=== PATIENT | female | born 1975 | race Caucasian/White ===

== ENCOUNTER 2020-04-28 00:41 | Outpatient (CLI) | payer OTHER, SELFPAY ==
[2020-04-28 18:35] LABS: SARS-CoV-2 RNA PCR Negative
== END 2020-04-28 00:42 | disposition home or self-care (01) ==
LOC: ANHCOVIDDT 00:41
PROVIDERS: PCP Family Medicine; Visit Provider Surgery
DX: Z01.812 Encounter for preprocedural laboratory examination (principal); Z11.59 Encounter for screening for other viral diseases
CPT/HCPCS: 87635; C9803; U0003

== ENCOUNTER 2020-04-30 01:37 | Day surgery (SDC) | payer OTHER, SELFPAY ==
[2020-04-14 12:26] VITALS: BMI 23.4
[2020-04-30] VITALS (11 sets, daily range): BP systolic 98–145; BP diastolic 55–89; PULSE 40–62; RESP 10–16; TEMP 36.1–36.6; O2SAT 98–100
[2020-04-30] MEDS: ACETAMINOPHEN 500 MG TABLET 1000 MG PO (09:21)
[2020-04-30] MEDS: LACTATED RINGERS 1,000 ML 30 ML IV CONT ×3 (09:35→14:55)
[2020-04-30] MEDS: KETOROLAC 15 MG/ML VIAL (*BKC) IV PUSH ×2 (09:38→15:04)
--- NOTE | 2020-04-30 10:07 | WPDANESEPPF ---
Anes - Initial Pre Proc Eval Procedure: Operation Date: 04/30/20 10:30 Proposed Procedures p Repair Right Lumbar Hernia With Mesh - Cameron Platt MD Date/Time: 04/30/20 10:07 Surgeon: Cameron Platt MD Pre Op Diagnosis: Right Lumbar Hernia Patient Data Age: 45 Gender: F Height: 5 ft Weight: 55.5 kg Last Vital Signs Temp 97.0 F L 04/30/20 08:59 Pulse 48 L 04/30/20 08:59 Resp 16 04/30/20 08:59 BP 132/78 04/30/20 08:59 Pulse Ox 100 04/30/20 08:59 Allergies Allergy/AdvReac Type Severity Reaction Status Date / Time No Known Allergies Allergy Unknown Verified 04/30/20 09:49 Home Medications Medication Instructions Recorded Confirmed Type levothyroxine 50 mcg tablet 50 mcg PO DAILY 01/21/20 04/30/20 History multivitamin,af-ujjn-kdyblnhn 1 tablet PO DAILY 03/03/20 04/30/20 History Patient hx anesthesia problems: none Family hx anesthesia problems: none PMFSH Past Medical History Medical History (Updated 04/30/20 @ 10:07 by Ben Hernandez MD) Hypothyroid Lipoma of flank Lipoma of hand Left hand - Removed Migraine Vaginal delivery x 2 Surgical History Surgical History History of dilation and curettage Family History Family History (Updated 04/13/20 @ 09:05 by Janeth Downing CMA) Mother Hypertension Family history of mental disorder Father Family history of lung cancer Family history of malignant neoplasm, Onset Age: 76 Sibling Cervical cancer Social History Social History (Updated 04/13/20 @ 09:06 by Janeth Downing CMA) Smoking status: Never smoker Second hand tobacco smoke exposure: No Alcohol intake: current Drinks per week: 3 Substance use: never Additional occupation/education comments: self employed Spiritual care concerns: No Anes - Eval Final PreProcedure Day of Procedure 04/30/20 10:07 Patient weight: normal Heart: regular rate and rhythm Lungs: clear to auscultation Airway: Mallampati scale class II Neurological: alert and oriented Last oral intake: >/= 8 hours ASA classification: II Emergent: no Anesthetic plan: proceed Anesthesia type and monitoring: general ETT and standard monitoring Informed Consent: The patient's anesthetic plan and its attendant risks and benefits were discussed with the patient/family/POA. Questions were solicited and answers provided to the satisfaction of the patient/family/POA.
--- NOTE | 2020-04-30 10:30 | WPDHPUPDATE1 ---
History and Physical Update Update Date/Time: 04/30/20 10:30 History and Physical has been reviewed, including an updated exam of the patient. There are NO changes in the patient's condition. Risks, benefits, and alternatives have been discussed and questions answered. Patient agrees to proceed with procedure.
[2020-04-30] MEDS: ceFAZolin 2 GM/D5W 50 ML 2 GM/50 ML BAG IVPB (10:56)
--- NOTE | 2020-04-30 14:10 | PM.PROC ---
Procedure Note - Detailed Date of procedure: 04/30/20 Pre-op diagnosis: Right Lumbar Hernia Right superior lumbar hernia Post-op diagnosis: same Procedure performed: repair right superior lumbar hernia with soft polypropylene mesh Description of procedure: The patient was checked in the preoperative holding area. The area of the hernia as well as the anticipated incision was marked on the skin of the right posterolateral back. She was then taken to the operating room. After she was induced into general anesthesia she was placed in left lateral decubitus position. Prep and drape was carried out. Local anesthesia was infiltrated in the area of the anticipated incision. Additional local was infiltrated deep to the skin. Incision was made and dissection was carried down through the skin and subcutaneous. The lateral portion of the latissimus was divided. A portion of the external oblique muscle was divided as well. Dissecting caudal to the 12th rib and posterior toward the erector spinae muscle, the hernia was found. It was a fairly large defect. From anterior to posterior it was about 5 cm. From cranial to caudad direction it was about 2 cm. The hernia sac was not opened. It was placed in the retroperitoneum and then, using blunt dissection, I cleared an area all around the hernia defect of at least 5 cm to position the mesh. This was somewhat difficult as it was hard to directly visualize. The immobility of the rib and internal oblique made this more difficult and mostly done by palpation. Eventually, I had an area under the defect which had been cleared adequately for mesh placement. An 18 x 10 cm piece of mesh was then cut from the larger piece of polypropylene. Additional local was infiltrated in the area of the hernia defect and the areas of dissection. The mesh was placed and some areas had to be trimmed so that it would fit properly. Transfascial sutures of 0 Ethibond were used to secure the mesh to the undersurface of the lower thoracic and upper flank musculature. Eventually the mesh was secured. I then closed the defect suturing internal oblique to either periosteum of the 12th rib or around the 12th rib with 2 0 PDS. These were interrupted sutures. There was minimal tension on the closure. Each suture incorporated a bit of mesh as well. I then closed the wound in layers with 3 0 Vicryl. The external oblique was 1st approximated. The latissimus was then approximated. Subcuticular interrupted 4 O Vicryl skin stitches were placed. Finally a running 4 0 Monocryl subcuticular skin suture was placed. The wound was dressed with Exofin surgical adhesive. The patient was awakened and taken to recovery in good condition. Sponge and needle counts were correct x2. Implants: soft polypropylene mesh Anesthesia: GETA and local ( 0.5% Marcaine mixed with Exparel) Surgeon: Cameron Platt MD [place] Burner Operator: Diana GALVAN, Fara GALVAN Estimated blood loss (mL): 20 Drains: No Packing: No Pathology: none sent Complications: None Condition: stable Disposition: PACU Findings: 5 cm x 2 cm triangular defect, superior lumbar hernia
[2020-04-30] MEDS: ONDANSETRON INJ 4 MG/2 ML VIAL IV PUSH (14:38)
[2020-04-30] MEDS: diphenhydrAMINE HCl INJ 50 MG/ML VIAL 12.5 MG IV PUSH (15:00)
== END 2020-04-30 16:30 | disposition home or self-care (01) ==
PROVIDERS: PCP Family Medicine; Visit Provider Surgery
PROC: 0WQF0ZZ Repair Abdominal Wall, Open Approach (ICD-10-PCS; CPT 49540; principal; 2020-04-30 10:30)
DX: K45.8 Other specified abdominal hernia without obstruction or gangrene (principal); E03.9 Hypothyroidism, unspecified
CPT/HCPCS: 49540; A9270; C1781; C9290; J0330; J0690; J1100; J1170; J1200; J1885; J2250; J2405; J2704; J3010; J7120

== ENCOUNTER 2020-08-07 07:55 | Outpatient (CLI) | payer OTHER, SELFPAY ==
--- NOTE | ~2020-08-07 | MM_ITS ---
EXAMINATION: MM screening samm BI w miles HISTORY: Screening mammogram TECHNIQUE: Craniocaudal and mediolateral oblique 3-D tomosynthesis images were obtained and synthetic 2-D images were generated. CAD analysis was submitted and interpreted. COMPARISON: 10/20/2017 bilateral digital screening mammogram 05/08/2014 diagnostic right digital mammogram and right breast ultrasound 05/02/2014 bilateral digital screening mammogram BREAST PARENCHYMAL COMPOSITION: The breasts are extremely dense, which lowers the sensitivity of mamm ography. FINDINGS: There is no evidence of suspicious mass, calcification, or architectural distortion to sugg est malignancy in either breast. There has been no suspicious interval change. IMPRESSION: 1. No mammographic evidence of malignancy. 2. Recommend routine screening mammography in one year. BI-RADS Category 1: Negative Reviewed, dictated and finalized at location B. CLAIMS EXAMINER
== END 2020-08-07 07:56 | disposition home or self-care (01) ==
PROVIDERS: PCP Family Medicine; Visit Provider Obstetrics & Gynecology
DX: Z12.31 Encounter for screening mammogram for malignant neoplasm of breast (principal)
CPT/HCPCS: 77063; 77067

== ENCOUNTER 2022-08-03 08:03 | Outpatient (CLI) | payer OTHER, SELFPAY ==
--- NOTE | ~2022-08-03 | MM_ITS ---
EXAMINATION: MM screening samm BI w miles HISTORY: Screening TECHNIQUE: Craniocaudal and mediolateral oblique 3-D tomosynthesis images were obtained and synthetic 2-D images were generated. CAD analysis was submitted and interpreted. COMPARISON: Comparison to multiple prior studies sequentially, with oldest reviewed study dated 05/02. BREAST PARENCHYMAL COMPOSITION: The breasts are heterogeneously dense, which may obscure small masses FINDINGS: There are no suspicious masses, developing asymmetries or architectural distortion in eithe r breast to suggest malignancy. There is a new cluster of calcifications laterally in the left breast , posterior margin on CC view. This is not well-visualized on MLO view. IMPRESSION: 1. New cluster of left breast calcifications located laterally on CC view, posterior third. 2. Magnification views are recommended. BI-RADS Category 0: Incomplete: Needs additional imaging evaluation. Reviewed, dictated and finalized at location A. STUFFER IMPRESSION: 1. New cluster of left breast calcifications located laterally on CC view, post erior third. 2. Magnification views are recommended. BI-RADS Category 0: Incomplete: Needs additional imaging evaluation.
== END 2022-08-03 08:04 | disposition home or self-care (01) ==
PROVIDERS: PCP Family Medicine; Visit Provider Obstetrics & Gynecology
DX: Z12.31 Encounter for screening mammogram for malignant neoplasm of breast (principal); R92.8 Other abnormal and inconclusive findings on diagnostic imaging of breast
CPT/HCPCS: 77063; 77067

== ENCOUNTER 2022-08-22 14:00 | Outpatient (CLI) | payer OTHER, SELFPAY ==
--- NOTE | ~2022-08-22 | MM_ITS ---
EXAMINATION: MM diagnostic samm LT w miles HISTORY: Indeterminate left breast calcifications on screening mammogram TECHNIQUE: Craniocaudal, mediolateral, and mediolateral oblique 3-D tomosynthesis images of the left breast were performed. CAD analysis was submitted and interpreted. COMPARISON: 08/03/2022, 08/07/2020,10/20/2017 FINDINGS: No definite grouped calcifications are identified with magnification views of the breast. F indings likely reflect pseudocalcification on screening mammogram. No suspicious architectural distor tion or mass are identified. IMPRESSION: 1. No mammographic evidence of malignancy. 2. Recommend routine screening mammography in one year. BI-RADS Category 1: Negative Reviewed, dictated and finalized at location A. LE ASSEMBLER
== END 2022-08-22 14:01 | disposition home or self-care (01) ==
PROVIDERS: PCP Family Medicine; Visit Provider Obstetrics & Gynecology
DX: R92.8 Other abnormal and inconclusive findings on diagnostic imaging of breast (principal)
CPT/HCPCS: 77061; 77065; G0279

== ENCOUNTER 2022-10-31 06:58 | Day surgery (SDC) | payer OTHER, SELFPAY ==
[2022-10-19 09:31] VITALS: BMI 22.4
[2022-10-31 08:15] VITALS: BP 104/76; PULSE 48; RESP 18; TEMP 36.5; O2SAT 100
[2022-10-31] MEDS: LACTATED RINGERS 1,000 ML 150 ML IV CONT (08:35)
--- NOTE | 2022-10-31 08:39 | WPDANESEPPF ---
Anes - Initial Pre Proc Eval Procedure: Operation Date: 10/31/22 09:30 Proposed Procedures p Screening Colonoscopy - Robert Meade MD Date/Time: 10/31/22 08:39 Surgeon: Robert Meade MD Pre Op Diagnosis: Neoplasm Screening Patient Data Age: 47 Gender: F Height: 1.55 m Weight: 54.1 kg Last Vital Signs Temp 36.5 C 10/31/22 08:15 Pulse 48 L 10/31/22 08:15 Resp 18 10/31/22 08:15 BP 104/76 10/31/22 08:15 Pulse Ox 100 10/31/22 08:15 O2 Del Method Room Air 10/31/22 08:15 Allergies Allergy/AdvReac Type Severity Reaction Status Date / Time No Known Allergies Allergy Unknown Verified 10/31/22 08:32 Home Medications Medication Instructions Recorded Confirmed Type levothyroxine 50 mcg tablet 50 mcg PO DAILY 01/21/20 10/31/22 History (Euthyrox) multivitamin,yg-nupi-ifcazzey 1 tablet PO DAILY 03/03/20 10/31/22 History (Complete Multivitamin tablet) alendronate 70 mg-cholecalciferol 1 tablet PO WEEKLY 10/19/22 10/31/22 History (vitamin D3) 2,800 unit tablet omega-3 fatty acids 500 mg PO DAILY 10/19/22 10/31/22 History vitamin B complex (B 1 tablet PO DAILY 10/19/22 10/31/22 History Complex-Vitamin B12 tablet) Patient hx anesthesia problems: none Family hx anesthesia problems: none Results Review: All pre-operative results and documents have been reviewed as part of the pre-operative evaluation. [facility] Past Medical History Medical History Hypothyroid Lipoma of hand Left hand - Removed Lumbar hernia Migraine Vaginal delivery x 2 Surgical History Surgical History H/O hernia repair repair right superior lumbar hernia with soft polypropylene mesh 04/30/2020 History of dilation and curettage Family History Family History Mother Hypertension Family history of mental disorder Father Family history of lung cancer Family history of malignant neoplasm, Onset Age: 76 Sibling Cervical cancer Social History Social History Smoking status: Never smoker Second hand tobacco smoke exposure: No Alcohol intake: current Drinks per week: 3 Substance use: never Substance use type: does not use Living arrangements: with family Occupation/Education: occupation Additional occupation/education comments: self employed Spiritual care concerns: No Anes - Eval Final PreProcedure Day of Procedure 10/31/22 08:39 Patient weight: normal Heart: regular rate and rhythm Lungs: clear to auscultation Airway: Mallampati scale class II Neurological: alert and oriented Last oral intake: >/= 8 hours ASA classification: II Emergent: no Anesthetic plan: proceed Anesthesia type and monitoring: general GIVS and standard monitoring Results Review: All pre-operative results and documents have been reviewed as part of the pre-operative evaluation. Informed Consent: The patient's anesthetic plan and its attendant risks and benefits were discussed with the patient/family/POA. Questions were solicited and answers provided to the satisfaction of the patient/family/POA.
--- NOTE | 2022-10-31 09:46 | PM.HPGS ---
History of Present Illness History of Present Illness Consent: Risks, benefits, and alternatives have been discussed and questions answered. Patient agrees to proceed with procedure. Chief complaint: Neoplasm Screening Narrative: Brodie Quinn is a 47 year old female here for first screening colonoscopy Review of Systems Constitutional: Constitutional: Denies headache(s) and Denies weakness Eyes: Eyes: Denies blurry vision ENT: Reports Normal hearing present, Denies headache(s) and Denies neck pain Cardiovascular: Cardiovascular: Denies chest pain and Denies dyspnea Respiratory: Respiratory: Denies dyspnea Gastrointestinal: Gastrointestinal: Reports no additional gastrointestinal complaints Genitourinary: Genitourinary: Denies dysuria Musculoskeletal: Musculoskeletal: Denies neck pain Integumentary/Breasts: Skin/Breast: Denies dry skin Neurologic: Reports Normal hearing present, Denies headache(s) and Denies weakness Psychiatric: Psychiatric: Denies anxiety Endocrine: Endocrine: Denies change in body appearance Hematologic/Lymphatic: Hematologic/Lymphatic: Denies easy bleeding Allergic/Immunologic: Allergic/Immunologic: Denies urticaria PMF Past Medical History Medical History (Updated 10/31/22 @ 09:47 by Robert Meade MD) Colon cancer screening Hypothyroid Lipoma of hand Left hand - Removed Lumbar hernia Migraine Vaginal delivery x 2 Surgical History Surgical History H/O hernia repair repair right superior lumbar hernia with soft polypropylene mesh 04/30/2020 History of dilation and curettage Family History Family History Mother Hypertension Family history of mental disorder Father Family history of lung cancer Family history of malignant neoplasm, Onset Age: 76 Sibling Cervical cancer Social History Social History Smoking status: Never smoker Second hand tobacco smoke exposure: No Alcohol intake: current Drinks per week: 3 Substance use: never Substance use type: does not use Living arrangements: with family Occupation/Education: occupation Additional occupation/education comments: self employed Spiritual care concerns: No Meds Home Medications and Allergies Home Medications Medication Instructions Recorded Confirmed Type levothyroxine 50 mcg tablet 50 mcg PO DAILY 01/21/20 10/31/22 History (Euthyrox) multivitamin,wl-xniz-zorspgrk 1 tablet PO DAILY 03/03/20 10/31/22 History (Complete Multivitamin tablet) alendronate 70 mg-cholecalciferol 1 tablet PO WEEKLY 10/19/22 10/31/22 History (vitamin D3) 2,800 unit tablet omega-3 fatty acids 500 mg PO DAILY 10/19/22 10/31/22 History vitamin B complex (B 1 tablet PO DAILY 10/19/22 10/31/22 History Complex-Vitamin B12 tablet) Allergies Allergy/AdvReac Type Severity Reaction Status Date / Time No Known Allergies Allergy Unknown Verified 10/31/22 08:32 Vital Signs Vital Signs - 24 hr 10/31/22 08:15 Temperature 97.7 F Pulse Rate 48 L Respiratory Rate 18 Blood Pressure 104/76 Pulse Oximetry 100 Oxygen Delivery Room Air Exam Const: General: comfortable and no acute distress HENMT: Face/Nose/Sinus: Normal nares present Eyes: General: appearance normal, both eyes and all related structures Neck: Neck: no JVD Resp: Auscultation: clear to auscultation bilaterally Cardio: Rate: regular rate Rhythm: regular rhythm GI: Inspection: non-distended GI Palp: Yes Soft to palpation Skin: General skin exam: normal color Neuro: General: gait normal Speech: normal speech Extrem: General: normal to inspection Psych: Mental Status: mental status grossly normal Assessment and Plan Assessment and plan (1) Colon cancer screening: Code(s): Z12.11 - Encounter for scr
[2022-10-31 10:25] VITALS: BP 110/86; PULSE 46; RESP 16; O2SAT 100
[2022-10-31 10:35] VITALS: BP 104/64; PULSE 44; RESP 18; O2SAT 100
[2022-10-31 10:45] VITALS: BP 103/69; PULSE 47; RESP 20; O2SAT 100
--- NOTE | 2022-10-31 11:10 | WPDANESPN ---
Anes - Prog Note Post-Op Date/Time: 10/31/22 11:10 Cardiovascular status: normal Respiratory status: normal Airway patency: baseline Mental status: baseline Post-Op hydration status: normal Vital Signs: Last Vital Signs Temp 36.5 C 10/31/22 08:15 Pulse 47 L 10/31/22 10:45 Resp 20 10/31/22 10:45 BP 103/69 10/31/22 10:45 Pulse Ox 100 10/31/22 10:45 O2 Del Method Room Air 10/31/22 10:45 Pain Score (VAS): 0 I/O: Intake & Output 10/30/22 10/31/22 10/31/22 23:59 07:59 15:59 Intake Total 200 Balance 200 Post-procedural complaints: none Patient Feedback: Patient satisfied with anesthetic care.
== END 2022-10-31 11:06 | disposition home or self-care (01) ==
PROVIDERS: Visit Provider Internal Medicine Gastroenterology
PROC: 0DJD8ZZ Inspection of Lower Intestinal Tract, Via Natural or Artificial Opening Endoscopic (ICD-10-PCS; CPT 45378; principal; 2022-10-31 09:30)
DX: Z12.11 Encounter for screening for malignant neoplasm of colon (principal)
CPT/HCPCS: 45385

== ENCOUNTER 2022-10-31 07:42 | Outpatient (NON) | payer OTHER, SELFPAY | END 2022-10-31 07:43 | disposition home or self-care (01) | LOC: ANHLAB 11-01 07:43 | PROVIDERS: Visit Provider Internal Medicine Gastroenterology | DX: D12.3 Benign neoplasm of transverse colon (principal) | CPT/HCPCS: 88305 ==

== ENCOUNTER → 2023-11-10 09:12 | Outpatient (CLI) | payer OTHER, SELFPAY ==
--- NOTE | ~2023-11-10 | US_ITS ---
EXAMINATION: US thyroid DATE: 11/10/2023 09:29 INDICATION: Nontoxic single thyroid nodule. TECHNIQUE: Multiple ultrasound images of the thyroid were obtained. COMPARISON: Ultrasound 01/15/2018, 01/16/2008 FINDINGS: The right thyroid lobe measures 4.7 x 1.9 x 1.8 cm. The left thyroid lobe measures 4.2 x 1.2 x 1.5 c m. The thyroid demonstrates heterogeneous hypoechogenicity and increased vascularity. No discrete no dule. IMPRESSION: 1. Chronically heterogeneous and hypervascular thyroid, consistent with chronic lymphocytic (Hashimot o) thyroiditis. Reviewed, dictated and finalized at location E. PREPARATION WORKER IMPRESSION: 1. Chronically heterogeneous and hypervascular thyroid, consistent with chronic lymphocytic (Martin) thyroiditis.
== END ==
PROVIDERS: PCP Family Medicine Sports Medicine; Referring Provider Internal Medicine Endocrinology, Diabetes & Metabolism; Visit Provider Obstetrics & Gynecology
DX: E04.1 Nontoxic single thyroid nodule (principal)
CPT/HCPCS: 76536

== ENCOUNTER 2024-04-04 07:13 | Outpatient (CLI) | payer OTHER, SELFPAY ==
--- NOTE | ~2024-04-04 | MM_ITS ---
EXAMINATION: MM screening samm BI w miles HISTORY: Screening TECHNIQUE: Craniocaudal and mediolateral oblique 3-D tomosynthesis images were obtained and synthetic 2-D images were generated. CAD analysis was submitted and interpreted. COMPARISON: Comparison to multiple prior studies sequentially, with oldest reviewed study dated 05/02. BREAST PARENCHYMAL COMPOSITION: Dense: The breasts are heterogeneously dense, which may obscure small masses FINDINGS: There is no evidence of suspicious mass, calcification, or architectural distortion to sugg est malignancy in either breast. There has been no suspicious interval change. IMPRESSION: 1. No mammographic evidence of malignancy. 2. Recommend routine screening mammography in one year. BI-RADS Category 1: Negative Reviewed, dictated and finalized at location B.
== END 2024-04-04 07:14 | disposition home or self-care (01) ==
PROVIDERS: PCP Family Medicine Sports Medicine; Visit Provider Obstetrics & Gynecology
DX: Z12.31 Encounter for screening mammogram for malignant neoplasm of breast (principal)
CPT/HCPCS: 77063; 77067

== ENCOUNTER 2025-05-16 07:21 | Outpatient (CLI) | payer OTHER, SELFPAY ==
--- NOTE | ~2025-05-16 | MM_ITS ---
EXAMINATION: MM screening samm BI w miles HISTORY: Screening TECHNIQUE: Craniocaudal and mediolateral oblique 3-D tomosynthesis images were obtained and synthetic 2-D images were generated. CAD analysis was submitted and interpreted. COMPARISON: Comparison to multiple prior studies sequentially, with oldest reviewed study dated , 05/02/2014 BREAST PARENCHYMAL COMPOSITION: The breasts are heterogeneously dense, which may obscure small masses. FINDINGS: There is no evidence of suspicious mass, calcification, or architectural distortion to suggest malignancy in either breast. IMPRESSION: 1. No mammographic evidence of malignancy. 2. Recommend routine screening mammography in one year. BI-RADS Category 1: Negative Reviewed, dictated and finalized at location B.
== END 2025-05-16 07:22 | disposition home or self-care (01) ==
LOC: ANHFOHIMG 07:22
PROVIDERS: PCP Family Medicine Sports Medicine; Visit Provider Obstetrics & Gynecology
DX: Z12.31 Encounter for screening mammogram for malignant neoplasm of breast (principal)
CPT/HCPCS: 77063; 77067